=== PATIENT | male | born 1975 | race Caucasian/White ===

== ENCOUNTER 2020-08-19 07:18 | Day surgery (SDC) | payer OTHER, MEDICAID, SELFPAY ==
[~2020-08-19] VITALS: Ht 177.8 cm; Wt 122.0 kg
[2020-08-19 08:11] LABS: POTASSIUM 4.8 mmol/L (3.5-5.1)
[2020-08-19 08:21] LABS: CREATININE 9.12 mg/dL (0.55-1.30)
[2020-08-19] MEDS ORDERED: SIMETHICONE 40 MG/0.6 ML ML ONE (08:54)
[2020-08-19] MEDS ORDERED: BENZOCAINE 20% 0.5mL UD SPRAY MM ONE (08:54)
[2020-08-19] MEDS ORDERED: fentaNYL CITRATE/PF 100 MCG/2 ML AMP ONE (08:58)
[2020-08-19] MEDS ORDERED: MIDAZOLAM HCL 5 MG/5 ML VIAL ONE (08:58)
[2020-08-19 11:35] VITALS: BP_SYST 132
== END 2020-08-19 10:45 | disposition home or self-care (01) ==
LOC: SDS 07:18 → EDSEX 07:18 → SDS 10:45
PROVIDERS: ATTEND Internal Medicine
DX: R13.10 Dysphagia, unspecified (principal); K21.9 Gastro-esophageal reflux disease without esophagitis; K29.70 Gastritis, unspecified, without bleeding; R19.4 Change in bowel habit; I12.0 Hypertensive chronic kidney disease with stage 5 chronic kidney disease or end stage renal disease; E11.22 Type 2 diabetes mellitus with diabetic chronic kidney disease; N18.6 End stage renal disease; Z95.0 Presence of cardiac pacemaker
CPT/HCPCS: 36415; 43239; 80048; 87426; 88305; 88312; 88313; 99152; G0378; J2250; J3010